=== PATIENT | female | born 1985 | race Caucasian/White ===

== ENCOUNTER 2017-08-09 02:57 | Inpatient (IN) | payer MEDICAID ==
[2017-08-09] VITALS (19 sets, daily range): BP systolic 132–178; BP diastolic 70–103
[~2017-08-09] VITALS: Ht 152.4 cm; Wt 68.0 kg
[~2017-08-09 02:57] MED LIST: CLON0.1T20 PO; ESCI10TA PO; LABE100T PO; LOSA100T28 PO; MINO2.5T19 PO; PHEN100C12 PO; PRO30XLT PO
[2017-08-09] MEDS ORDERED: propofol 1000mg/100ml bottle 100 ML IV ONE (03:10)
[2017-08-09] MEDS ORDERED: VECuronium br 10mg inj. IV ONE (03:18)
[2017-08-09 03:20] LABS: BASOPHILS % (AUTO) 0.3 % (0-1); EOSINOPHILS # (AUTO) 0.3 X10'3 (0-0.9); EOSINOPHILS % (AUTO) 1.9 % (0-6); HEMATOCRIT 42.4 % (35.0-45.0); HEMOGLOBIN 13.5 g/dl (12.0-16.0); LYMPHOCYTES # (AUTO) 4.1 X10'3 (1.1-4.8); LYMPHOCYTES % (AUTO) 24.8 % (21-51); MEAN CORPUSCULAR HEMOGLOBIN 33.4 PG (27.0-31.0); MEAN CORPUSCULAR HGB CONC 31.8 % (33.0-36.5); MEAN PLATELET VOLUME 7.5 FL (7.4-10.4); MONOCYTES # (AUTO) 1.1 X10'3 (0-0.9); MONOCYTES % (AUTO) 6.6 % (2-12); NEUTROPHILS % (AUTO) 66.4 % (42-75); PLATELET COUNT 218 X10'3 (140-440); RED BLOOD COUNT 4.03 X10'6 (4.20-5.60); WHITE BLOOD COUNT 16.5 X10'3 (4.5-11.0)
[2017-08-09] MEDS ORDERED: hydrALAZINE 20mg/ml inj. IV ONE (03:30)
[2017-08-09 03:32] LABS: PARTIAL THROMBOPLASTIN TIME 37 SECONDS (22-32); PROTHROMBIN TIME 10.3 SECONDS (9.0-12.0)
[2017-08-09] MEDS: niCARDipine/sod cl 20mg/200ml 200 ML IV SCH ×5 (03:35→21:53)
[2017-08-09 03:36] LABS: ALANINE AMINOTRANSFERASE 50 U/L (12-78); ALBUMIN 3.5 G/DL (3.4-5.0); ALBUMIN/GLOBULIN RATIO 0.9 (1.1-1.5); ALKALINE PHOSPHATASE 172 IU/L (46-116); ANION GAP 25 (8-16); ASPARTATE AMINO TRANSFERASE 47 U/L (10-37); BILIRUBIN,TOTAL 0.4 MG/DL (0.1-1.0); BLOOD UREA NITROGEN 61 MG/DL (7-18); BUN/CREATININE RATIO 7.6 (6.6-38.0); CALCIUM 7.3 MG/DL (8.5-10.1); CHLORIDE 98 MMOL/L (99-107); CREATININE 8.01 MG/DL (0.40-0.90); GLUCOSE 250 MG/DL (70-104); POTASSIUM 5.9 MMOL/L (3.5-5.1); SODIUM 144 MMOL/L (135-145); TOTAL PROTEIN 7.4 G/DL (6.4-8.2); eGFR 6 ML/MIN
[2017-08-09 03:46] LABS: ABG BASE EXCESS -13.7 mmol/L (-2.0-3.0); ABG HCO3 17.4 mmol/L (22.0-26.0); ABG OXYGEN SATURATION 78.1 % (95-98); ABG PCO2 (T) 64.6 mmHg (32.0-45.0); ABG PH (T) 7.047 (7.350-7.450); ABG PO2 (T) 60.5 mmHg (83-108); FCOHb 2.1 % (0.5-1.5); FMetHb 0.2 % (0.3-1.12); FO2Hb 76.3 % (94-100); MINUTE VOLUME 8 L/min; PATIENT TEMPERATURE 36.9; PEEP 5 cm H2O; RESPIRATORY RATE 16 b/min; RESPIRATORY RATE (OBSERVED) 16 b/min; TIDAL VOLUME 500 mL; TOTAL HEMOGLOBIN 13.3 G/dl (12.0-16.0)
[2017-08-09] MEDS ORDERED: CISatracurium besylate inj. 200 MG in normal saline 250ml IV soln 180 ML IV PRN (04:24)
[2017-08-09] MEDS ORDERED: midazolam 2 mg/2 ml injection IV ONE (04:25)
[2017-08-09] MEDS ORDERED: CISatracurium **Bolus** 2 mg/ml inj IV PRN (04:25)
[2017-08-09] MEDS ORDERED: fentaNYL/PF 50MCG/1 ML 2ML syringe IV PRN (04:25)
[2017-08-09] MEDS: midazolam 100mg in NS 100ml 100 ML IV PRN (05:55)
[2017-08-09] MEDS: FENTANYL-0.9 % NACL/PF 100 ML IV PRN ×3 (05:55→15:53)
[2017-08-09] MEDS: ipratropium/albuterol 3ml nebule NEB SCH ×2 (07:08→10:45)
[2017-08-09] MEDS ORDERED: sodium bicarbonate (8.4%) 1 mEq/ml syringe ONE (08:00)
[2017-08-09] MEDS ORDERED: epiNEPHrine 0.1mg/ml 10ml syringe ONE (08:00)
[2017-08-09] MEDS: pantoprazole 40 MG vial IV SCH (08:32)
[2017-08-09 08:54] LABS: BETA HCG,QUANTITATIVE < 1.0 mIU/ml; CKMB RELATIVE INDEX 2.1 RATIO (0-2.5); CREATINE KINASE 154 U/L (26-192); MAGNESIUM 3.3 MG/DL (1.5-2.4); PHOSPHORUS 10.8 MG/DL (2.3-4.5); TROPONIN I < 0.04 NG/ML (0.0-0.05)
[2017-08-09 09:10] LABS: ABG HCO3 19.9 mmol/L (22.0-26.0); ABG OXYGEN SATURATION 97.6 % (95-98); ABG PCO2 (T) 20.8 mmHg (32.0-45.0); ABG PH (T) 7.577 (7.350-7.450); ALLEN'S TEST Positive; FCOHb 0.5 % (0.5-1.5); FMetHb 0.1 % (0.3-1.12); MINUTE VOLUME 11 L/min; PATIENT TEMPERATURE 31.2; PEEP 8 cm H2O; RESPIRATORY RATE 20 b/min; RESPIRATORY RATE (OBSERVED) 20 b/min; TIDAL VOLUME 500 mL
[2017-08-09 11:00] LABS: ABG BASE EXCESS 2.4 mmol/L (-2.0-3.0); ABG HCO3 27.8 mmol/L (22.0-26.0); ABG OXYGEN SATURATION 97.8 % (95-98); ABG PCO2 (T) 36.3 mmHg (32.0-45.0); ABG PH (T) 7.479 (7.350-7.450); ALLEN'S TEST Positive; FCOHb 0.8 % (0.5-1.5); FMetHb 0.1 % (0.3-1.12); FO2Hb 96.9 % (94-100); MINUTE VOLUME 8 L/min; PATIENT TEMPERATURE 31.5; PEEP 8 cm H2O; RESPIRATORY RATE 16 b/min; RESPIRATORY RATE (OBSERVED) 16 b/min; TIDAL VOLUME 450 mL; TOTAL HEMOGLOBIN 14.2 G/dl (12.0-16.0)
[2017-08-09 13:10] LABS: ALBUMIN 3.3 G/DL (3.4-5.0); ANION GAP 12 (8-16); BLOOD UREA NITROGEN 69 MG/DL (7-18); BUN/CREATININE RATIO 8.5 (6.6-38.0); CALCIUM 6.5 MG/DL (8.5-10.1); CHLORIDE 104 MMOL/L (99-107); CREATINE KINASE 172 U/L (26-192); CREATININE 8.11 MG/DL (0.40-0.90); GLUCOSE 126 MG/DL (70-104); POTASSIUM 4.7 MMOL/L (3.5-5.1); SODIUM 144 MMOL/L (135-145); TOTAL CARBON DIOXIDE 27.9 MMOL/L (24-32); TROPONIN I 0.04 NG/ML (0.0-0.05); eGFR 6 ML/MIN
[2017-08-09 17:31] LABS: ALBUMIN 3.5 G/DL (3.4-5.0); ANION GAP 13 (8-16); BLOOD UREA NITROGEN 73 MG/DL (7-18); CALCIUM 6.8 MG/DL (8.5-10.1); CHLORIDE 103 MMOL/L (99-107); CKMB RELATIVE INDEX 4.9 RATIO (0-2.5); CREATINE KINASE 174 U/L (26-192); GLUCOSE 106 MG/DL (70-104); MAGNESIUM 2.9 MG/DL (1.5-2.4); SODIUM 142 MMOL/L (135-145); TOTAL CARBON DIOXIDE 25.9 MMOL/L (24-32); TROPONIN I 0.04 NG/ML (0.0-0.05); eGFR 6 ML/MIN
[2017-08-09 17:35] LABS: POTASSIUM 6.3 MMOL/L (3.5-5.1)
[2017-08-09 23:26] LABS: ALBUMIN 3.2 G/DL (3.4-5.0); ANION GAP 13 (8-16); BLOOD UREA NITROGEN 76 MG/DL (7-18); BUN/CREATININE RATIO 8.9 (6.6-38.0); CALCIUM 6.8 MG/DL (8.5-10.1); CHLORIDE 104 MMOL/L (99-107); CREATININE 8.52 MG/DL (0.40-0.90); GLUCOSE 96 MG/DL (70-104); MAGNESIUM 2.8 MG/DL (1.5-2.4); SODIUM 143 MMOL/L (135-145); eGFR 5 ML/MIN
[2017-08-09 23:33] LABS: POTASSIUM 7.1 MMOL/L (3.5-5.1)
[2017-08-09] MEDS ORDERED: calcium chloride 100 MG/1 ML inj IV ONE (23:45)
[2017-08-09] MEDS ORDERED: sodium polystyrene sulfonate 15gm/60ml oral suspension PO ONE (23:45)
[2017-08-10] VITALS (24 sets, daily range): BP systolic 92–198; BP diastolic 38–85
[2017-08-10 00:16] LABS: ABG BASE EXCESS -3.4 mmol/L (-2.0-3.0); ABG PH (T) 7.334 (7.350-7.450); ABG PO2 (T) 107.2 mmHg (83-108); ALLEN'S TEST Positive; FCOHb 0.2 % (0.5-1.5); FMetHb 0.2 % (0.3-1.12); FO2Hb 97.6 % (94-100); MINUTE VOLUME 7 L/min; PEEP 8 cm H2O; RESPIRATORY RATE 14 b/min; RESPIRATORY RATE (OBSERVED) 14 b/min; TIDAL VOLUME 450 mL; TOTAL HEMOGLOBIN 14.4 G/dl (12.0-16.0)
[2017-08-10] MEDS: midazolam 100mg in NS 100ml 100 ML IV PRN ×2 (01:19→21:37)
[2017-08-10] MEDS: niCARDipine/sod cl 20mg/200ml 200 ML IV SCH ×7 (01:19→21:38)
[2017-08-10] MEDS ORDERED: albuterol 2.5 MG/3 ML nebule CONTNEB STA (05:30)
[2017-08-10] MEDS ORDERED: sodium bicarbonate (8.4%) 1 mEq/ml syringe IV STA (05:30)
[2017-08-10 05:32] LABS: BASOPHILS % (AUTO) 0 % (0-1); EOSINOPHILS # (AUTO) 0.2 X10'3 (0-0.9); EOSINOPHILS % (AUTO) 1.2 % (0-6); HEMOGLOBIN 13.5 g/dl (12.0-16.0); LYMPHOCYTES # (AUTO) 0.4 X10'3 (1.1-4.8); LYMPHOCYTES % (AUTO) 2.7 % (21-51); MEAN CORPUSCULAR HEMOGLOBIN 33.3 PG (27.0-31.0); MEAN CORPUSCULAR HGB CONC 32.9 % (33.0-36.5); MEAN CORPUSCULAR VOLUME 101.2 FL (78-98); MEAN PLATELET VOLUME 6.7 FL (7.4-10.4); MONOCYTES # (AUTO) 0.3 X10'3 (0-0.9); NEUTROPHILS # (AUTO) 15.5 X10'3 (1.8-7.7); NEUTROPHILS % (AUTO) 94.1 % (42-75); PLATELET COUNT 210 X10'3 (140-440); RED BLOOD COUNT 4.05 X10'6 (4.20-5.60); RED CELL DISTRIBUTION WIDTH 15.7 % (11.5-14.5); WHITE BLOOD COUNT 16.5 X10'3 (4.5-11.0)
[2017-08-10 05:43] LABS: PARTIAL THROMBOPLASTIN TIME 30 SECONDS (22-32); PROTHROMBIN TIME 10.5 SECONDS (9.0-12.0)
[2017-08-10 06:00] LABS: ALANINE AMINOTRANSFERASE 57 U/L (12-78); ALBUMIN 3.2 G/DL (3.4-5.0); ALBUMIN/GLOBULIN RATIO 0.8 (1.1-1.5); ALKALINE PHOSPHATASE 118 IU/L (46-116); ANION GAP 14 (8-16); ASPARTATE AMINO TRANSFERASE 40 U/L (10-37); BILIRUBIN,TOTAL 0.4 MG/DL (0.1-1.0); BLOOD UREA NITROGEN 78 MG/DL (7-18); BUN/CREATININE RATIO 8.8 (6.6-38.0); CALCIUM 7.6 MG/DL (8.5-10.1); CHLORIDE 104 MMOL/L (99-107); CKMB RELATIVE INDEX 5.8 RATIO (0-2.5); CREATINE KINASE 130 U/L (26-192); CREATININE 8.87 MG/DL (0.40-0.90); GLUCOSE 95 MG/DL (70-104); MAGNESIUM 2.8 MG/DL (1.5-2.4); PHOSPHORUS 7.8 MG/DL (2.3-4.5); SODIUM 144 MMOL/L (135-145); TOTAL CARBON DIOXIDE 25.8 MMOL/L (24-32); TROPONIN I < 0.04 NG/ML (0.0-0.05); eGFR 5 ML/MIN
[2017-08-10 06:01] LABS: POTASSIUM 6.8 MMOL/L (3.5-5.1)
[2017-08-10] MEDS: FENTANYL-0.9 % NACL/PF 100 ML IV PRN (08:30)
[2017-08-10] MEDS: pantoprazole 40 MG vial IV SCH (08:34)
[2017-08-10] MEDS: mineral oil/petrolatum ophthal oint EACHEYE SCH ×3 (08:35→21:37)
[2017-08-10] MEDS ORDERED: CLON0.1T PO (11:53)
[2017-08-10] MEDS ORDERED: NIFE90TA44 PO (11:53)
[2017-08-10] MEDS ORDERED: LABE100T PO (11:53)
[2017-08-10] MEDS ORDERED: LOSA100T28 PO (11:53)
[2017-08-10] MEDS ORDERED: ESCI10TA PO (11:53)
[2017-08-10] MEDS ORDERED: LORazepam 2 mg/ml vial ONE (12:56)
[2017-08-10] MEDS: LORazepam 2 mg/ml vial IV PRN ×4 (13:04→13:41)
[2017-08-10] MEDS ORDERED: dextrose 50%-water 50ml dispensing syringe IV ONE (13:10)
[2017-08-10] MEDS ORDERED: dextrose ORAL solution 15 GM/59 ML bottle PO PRN ×2 (13:15)
[2017-08-10] MEDS ORDERED: MESSAGE TO PHARMACY PO ONE (13:15)
[2017-08-10] MEDS ORDERED: phenytoin sod inj 1,000 MG in normal saline 100ml IV soln 80 ML IV ONE (13:15)
[2017-08-10] MEDS ORDERED: glucagon, human recombinant 1mg kit SUBCUT PRN (13:15)
[2017-08-10] MEDS ORDERED: dextrose 50%-water 50ml dispensing syringe IV PRN ×2 (13:15)
[2017-08-10 14:04] LABS: MAGNESIUM 2.5 MG/DL (1.5-2.4); PHOSPHORUS 10.4 MG/DL (2.3-4.5); POTASSIUM 4.6 MMOL/L (3.5-5.1)
[2017-08-10] MEDS ORDERED: vancomycin/NS 1 GM ADD-VANTAGE 250 ML IV SCH (14:10)
[2017-08-10] MEDS ORDERED: LIDOcaine 1% (10mg/ml) 2ml vial SQ ONE (14:30)
[2017-08-10] MEDS ORDERED: LIDOcaine 1% (10mg/ml) 2ml vial ONE (14:38)
[2017-08-10] MEDS ORDERED: vancomycin inj 500 MG in normal saline 100ml IV soln 100 ML IV PRN (14:45)
[2017-08-10] MEDS ORDERED: vancomycin/NS 1 GM ADD-VANTAGE 250 ML IV STA (14:45)
[2017-08-10] MEDS ORDERED: vancomycin/NS 1 GM ADD-VANTAGE 250 ML IV PRN (14:45)
[2017-08-10] MEDS ORDERED: phenytoin sod 50mg/ml 2ml vial IV SCH ×2 (16:00)
[2017-08-10] MEDS: phenytoin sod 50mg/ml 2ml vial IV SCH (21:37)
[2017-08-11] VITALS (24 sets, daily range): BP systolic 113–193; BP diastolic 58–100
[2017-08-11] MEDS: mineral oil/petrolatum ophthal oint EACHEYE SCH ×4 (02:00→20:52)
[2017-08-11 02:40] LABS: BASOPHILS % (AUTO) 0.2 % (0-1); EOSINOPHILS # (AUTO) 0.2 X10'3 (0-0.9); EOSINOPHILS % (AUTO) 1.6 % (0-6); HEMATOCRIT 34.3 % (35.0-45.0); HEMOGLOBIN 11.1 g/dl (12.0-16.0); LYMPHOCYTES # (AUTO) 0.9 X10'3 (1.1-4.8); LYMPHOCYTES % (AUTO) 7.2 % (21-51); MEAN CORPUSCULAR HEMOGLOBIN 32.5 PG (27.0-31.0); MEAN CORPUSCULAR HGB CONC 32.5 % (33.0-36.5); MEAN CORPUSCULAR VOLUME 100.3 FL (78-98); MEAN PLATELET VOLUME 6.6 FL (7.4-10.4); MONOCYTES # (AUTO) 0.7 X10'3 (0-0.9); MONOCYTES % (AUTO) 5.8 % (2-12); NEUTROPHILS # (AUTO) 10.4 X10'3 (1.8-7.7); NEUTROPHILS % (AUTO) 85.2 % (42-75); PLATELET COUNT 176 X10'3 (140-440); RED BLOOD COUNT 3.42 X10'6 (4.20-5.60); WHITE BLOOD COUNT 12.3 X10'3 (4.5-11.0)
[2017-08-11 02:52] LABS: PARTIAL THROMBOPLASTIN TIME 31 SECONDS (22-32); PROTHROMBIN TIME 10.8 SECONDS (9.0-12.0)
[2017-08-11 02:58] LABS: ALANINE AMINOTRANSFERASE 36 U/L (12-78); ALBUMIN 2.8 G/DL (3.4-5.0); ALBUMIN/GLOBULIN RATIO 0.8 (1.1-1.5); ALKALINE PHOSPHATASE 92 IU/L (46-116); ANION GAP 8 (8-16); ASPARTATE AMINO TRANSFERASE 31 U/L (10-37); BILIRUBIN,TOTAL 0.3 MG/DL (0.1-1.0); BLOOD UREA NITROGEN 37 MG/DL (7-18); BUN/CREATININE RATIO 6.6 (6.6-38.0); CALCIUM 7.2 MG/DL (8.5-10.1); CHLORIDE 104 MMOL/L (99-107); GLUCOSE 90 MG/DL (70-104); MAGNESIUM 2.1 MG/DL (1.5-2.4); PHOSPHORUS 6.9 MG/DL (2.3-4.5); POTASSIUM 3.9 MMOL/L (3.5-5.1); SODIUM 145 MMOL/L (135-145); TOTAL CARBON DIOXIDE 33.3 MMOL/L (24-32); TOTAL PROTEIN 6.1 G/DL (6.4-8.2); VANCOMYCIN,RANDOM 22.9 UG/ML; eGFR 9 ML/MIN
[2017-08-11] MEDS: VANCOMYCIN LEVEL IV SCH (03:00)
[2017-08-11] MEDS: FENTANYL-0.9 % NACL/PF 100 ML IV PRN (03:47)
[2017-08-11] MEDS: niCARDipine/sod cl 20mg/200ml 200 ML IV SCH ×6 (04:02→20:52)
[2017-08-11 04:15] LABS: ABG BASE EXCESS 4.5 mmol/L (-2.0-3.0); ABG HCO3 30.4 mmol/L (22.0-26.0); ABG OXYGEN SATURATION 97.1 % (95-98); ABG PCO2 (T) 52.4 mmHg (32.0-45.0); ABG PH (T) 7.385 (7.350-7.450); FCOHb 0.1 % (0.5-1.5); FMetHb 0.3 % (0.3-1.12); FO2Hb 96.7 % (94-100); MINUTE VOLUME 7 L/min; PATIENT TEMPERATURE 37.7; PEEP 8 cm H2O; RESPIRATORY RATE 14 b/min; RESPIRATORY RATE (OBSERVED) 14 b/min; TIDAL VOLUME 450 mL; TOTAL HEMOGLOBIN 12.5 G/dl (12.0-16.0)
[2017-08-11] MEDS: phenytoin sod 50mg/ml 2ml vial IV SCH ×3 (05:19→20:53)
[2017-08-11] MEDS: pantoprazole 40 MG vial IV SCH (07:23)
[2017-08-11] MEDS: midazolam 100mg in NS 100ml 100 ML IV PRN ×2 (07:23→13:34)
[2017-08-11] MEDS ORDERED: sodium chloride inj. 154 MEQ in Dextrose 10%-water IV solution 961.5 ML IV SCH (10:30)
[2017-08-11] MEDS: Dextrose 10%-water IV solution 1,000 ML IV SCH (13:55)
[2017-08-11] MEDS: heparin, porcine 5000 units/ml vial SQ SCH (20:53)
[2017-08-11] MEDS: LORazepam 2 mg/ml vial IV PRN (23:04)
[2017-08-12] VITALS (15 sets, daily range): BP systolic 160–197; BP diastolic 76–95
[2017-08-12] MEDS: niCARDipine/sod cl 20mg/200ml 200 ML IV SCH ×4 (00:15→14:00)
[2017-08-12] MEDS: LORazepam 2 mg/ml vial IV PRN ×11 (01:00→15:18)
[2017-08-12] MEDS: mineral oil/petrolatum ophthal oint EACHEYE SCH ×3 (01:23→14:00)
[2017-08-12] MEDS: VANCOMYCIN LEVEL IV SCH (03:00)
[2017-08-12 03:02] LABS: BASOPHILS % (AUTO) 0.4 % (0-1); EOSINOPHILS % (AUTO) 0 % (0-6); HEMATOCRIT 33.8 % (35.0-45.0); HEMOGLOBIN 11.1 g/dl (12.0-16.0); LYMPHOCYTES # (AUTO) 0.8 X10'3 (1.1-4.8); LYMPHOCYTES % (AUTO) 7.3 % (21-51); MEAN CORPUSCULAR HEMOGLOBIN 32.7 PG (27.0-31.0); MEAN CORPUSCULAR HGB CONC 32.9 % (33.0-36.5); MEAN CORPUSCULAR VOLUME 99.6 FL (78-98); MEAN PLATELET VOLUME 6.5 FL (7.4-10.4); MONOCYTES # (AUTO) 0.6 X10'3 (0-0.9); MONOCYTES % (AUTO) 5.9 % (2-12); NEUTROPHILS # (AUTO) 9.3 X10'3 (1.8-7.7); NEUTROPHILS % (AUTO) 86.4 % (42-75); PLATELET COUNT 142 X10'3 (140-440); RED BLOOD COUNT 3.39 X10'6 (4.20-5.60); RED CELL DISTRIBUTION WIDTH 15.4 % (11.5-14.5); WHITE BLOOD COUNT 10.8 X10'3 (4.5-11.0)
[2017-08-12 03:19] LABS: PARTIAL THROMBOPLASTIN TIME 30 SECONDS (22-32); PROTHROMBIN TIME 10.1 SECONDS (9.0-12.0)
[2017-08-12 03:33] LABS: ALANINE AMINOTRANSFERASE 36 U/L (12-78); ALBUMIN 2.8 G/DL (3.4-5.0); ALBUMIN/GLOBULIN RATIO 0.8 (1.1-1.5); ALKALINE PHOSPHATASE 85 IU/L (46-116); ANION GAP 12 (8-16); ASPARTATE AMINO TRANSFERASE 57 U/L (10-37); BILIRUBIN,TOTAL 0.3 MG/DL (0.1-1.0); BLOOD UREA NITROGEN 53 MG/DL (7-18); BUN/CREATININE RATIO 6.5 (6.6-38.0); CALCIUM 6.9 MG/DL (8.5-10.1); CHLORIDE 102 MMOL/L (99-107); CREATININE 8.13 MG/DL (0.40-0.90); GLUCOSE 113 MG/DL (70-104); MAGNESIUM 2.2 MG/DL (1.5-2.4); PHENYTOIN (DILANTIN) 11.2 UG/ML (10.0-20.0); PHOSPHORUS 6.8 MG/DL (2.3-4.5); POTASSIUM 3.8 MMOL/L (3.5-5.1); SODIUM 143 MMOL/L (135-145); TOTAL PROTEIN 6.2 G/DL (6.4-8.2); VANCOMYCIN,RANDOM 18.9 UG/ML; eGFR 6 ML/MIN
[2017-08-12 04:11] LABS: ABG BASE EXCESS 1.8 mmol/L (-2.0-3.0); ABG HCO3 28.2 mmol/L (22.0-26.0); ABG OXYGEN SATURATION 95.9 % (95-98); ABG PCO2 (T) 52.5 mmHg (32.0-45.0); ABG PH (T) 7.349 (7.350-7.450); ABG PO2 (T) 91.5 mmHg (83-108); ALLEN'S TEST Positive; FMetHb 0.3 % (0.3-1.12); FO2Hb 95.6 % (94-100); MINUTE VOLUME 7 L/min; PATIENT TEMPERATURE 37.4; PEEP 8 cm H2O; RESPIRATORY RATE 14 b/min; RESPIRATORY RATE (OBSERVED) 14 b/min; TIDAL VOLUME 450 mL; TOTAL HEMOGLOBIN 12.6 G/dl (12.0-16.0)
[2017-08-12] MEDS: phenytoin sod 50mg/ml 2ml vial IV SCH ×2 (05:10→13:06)
[2017-08-12] MEDS: midazolam 100mg in NS 100ml 100 ML IV PRN ×2 (05:33→14:25)
[2017-08-12] MEDS: FENTANYL-0.9 % NACL/PF 100 ML IV PRN (05:34)
[2017-08-12] MEDS: pantoprazole 40 MG vial IV SCH (07:27)
[2017-08-12] MEDS: Dextrose 10%-water IV solution 1,000 ML IV SCH ×2 (07:27→09:15)
[2017-08-12] MEDS: heparin, porcine 5000 units/ml vial SQ SCH (07:28)
[2017-08-12] MEDS ORDERED: LACTOBACILLUS RHAMNOSUS GG 15 billion unit sprinkle caps PO SCH (07:30)
[2017-08-12] MEDS ORDERED: methylnaltrexone br 12mg/0.6ml inj***SubQ only SQ SCH (08:00)
[2017-08-12] MEDS ORDERED: LORazepam 2 mg/ml vial IV PRN (15:05)
== END 2017-08-12 16:30 | disposition expired | DRG 196 ==
LOC: ER 02:58 → ED HOLD 04:13 → ICU 2S 05:15
PROVIDERS: ADMIT Internal Medicine Critical Care Medicine; ATTEND Internal Medicine Critical Care Medicine
PROC: 5A1945Z Respiratory Ventilation, 24-96 Consecutive Hours (ICD-10-PCS; principal; 2017-08-09)
PROC: 5A12012 Performance of Cardiac Output, Single, Manual (ICD-10-PCS; 2017-08-09)
PROC: 0BH17EZ Insertion of Endotracheal Airway into Trachea, Via Natural or Artificial Opening (ICD-10-PCS; 2017-08-09)
PROC: 02HV33Z Insertion of Infusion Device into Superior Vena Cava, Percutaneous Approach (ICD-10-PCS; 2017-08-09)
PROC: 5A1D70Z Performance of Urinary Filtration, Intermittent, Less than 6 Hours Per Day (ICD-10-PCS; 2017-08-10)
DX: I46.9 Cardiac arrest, cause unspecified (principal); J96.90 Respiratory failure, unspecified, unspecified whether with hypoxia or hypercapnia; R40.20 Unspecified coma; N18.6 End stage renal disease; G93.1 Anoxic brain damage, not elsewhere classified; I43 Cardiomyopathy in diseases classified elsewhere; I13.11 Hypertensive heart and chronic kidney disease without heart failure, with stage 5 chronic kidney disease, or end stage renal disease; F15.90 Other stimulant use, unspecified, uncomplicated; G40.901 Epilepsy, unspecified, not intractable, with status epilepticus; G47.30 Sleep apnea, unspecified; Z66 Do not resuscitate; E87.70 Fluid overload, unspecified; I16.0 Hypertensive urgency; Z51.5 Encounter for palliative care; F12.90 Cannabis use, unspecified, uncomplicated; F32.9 Major depressive disorder, single episode, unspecified; F41.9 Anxiety disorder, unspecified; G89.29 Other chronic pain; M19.90 Unspecified osteoarthritis, unspecified site; Z87.440 Personal history of urinary (tract) infections; Z86.14 Personal history of Methicillin resistant Staphylococcus aureus infection; Z99.2 Dependence on renal dialysis; Z59.0 Homelessness; Z86.73 Personal history of transient ischemic attack (TIA), and cerebral infarction without residual deficits; Z91.14 Patient's other noncompliance with medication regimen; Z88.8 Allergy status to other drugs, medicaments and biological substances; Z79.899 Other long term (current) drug therapy; Z85.9 Personal history of malignant neoplasm, unspecified
CPT/HCPCS: 36415; 36556; 36600; 70450; 71045; 80048; 80053; 80185; 80202; 82330; 82550; 82553; 82803; 82948; 83605; 83735; 84100; 84132; 84145; 84443; 84484; 84702; 85018; 85025; 85610; 85730; 87040; 87070; 87077; 93005; 93306; 94002; 94003; 94640; 94760; 95816; 96374; 96375; 99291; A6213; C1751; C1758; C9113; G0257; J0171; J0360; J1165; J1644; J2060; J2250; J2704; J3370; J3490; J7030; J7131